=== PATIENT | male | born 1995 | race African-American/Black ===

== ENCOUNTER 2024-06-19 15:22 | Inpatient (IN) | payer OTHER ==
[~2024-06-19] VITALS: Ht 182.9 cm; Wt 100.0 kg
[2024-06-19] MEDS ORDERED: SULF-261 PO (15:57)
[2024-06-19] MEDS ORDERED: METF-1211 PO (15:57)
[2024-06-19] MEDS ORDERED: OXCA300T70 PO (15:57)
[2024-06-19] MEDS ORDERED: SERT-162 PO (15:57)
[2024-06-19] MEDS ORDERED: LEVAHFA IH (15:57)
[2024-06-19] MEDS ORDERED: HYDR-4808 PO ×2 (15:57)
[2024-06-19] MEDS ORDERED: PRAZ2 PO (15:57)
[2024-06-19 16:17] LABS: BASOPHILS % (AUTO) 0.7 % (0.0-2.0); EOSINOPHILS % (AUTO) 6.1 % (1.0-6.0); HEMATOCRIT 42.1 % (41-53); HEMOGLOBIN 13.2 g/dL (13.5-17.5); LYMPHOCYTES # (AUTO) 2.1 K/uL (1.0-4.8); LYMPHOCYTES % (AUTO) 45.6 % (22.0-44.0); MEAN CORPUSCULAR HGB CONC 31.4 G/dL (31.0-37.0); MEAN CORPUSCULAR VOLUME 89 fL (80-100); MONOCYTES # (AUTO) 0.4 K/uL (0.1-1.0); MONOCYTES % (AUTO) 9.4 % (2.0-9.0); NEUTROPHILS # (AUTO) 1.8 K/uL (1.8-7.7); NEUTROPHILS % (AUTO) 38.2 % (40.0-70.0); PLATELET COUNT (AUTO) 289 K/uL (150-450); RED BLOOD CELL COUNT(AUTO) 4.73 MIL/uL (4.50-5.90); RED CELL DISTRIBUTION WIDTH 14.5 % (11.5-14.5); WHITE BLOOD COUNT (AUTO) 4.6 K/uL (4.5-11.0)
[2024-06-19 16:27] LABS: ANION GAP 7 mmol/L (8-16); CALCIUM, TOTAL 8.8 mg/dL (8.8-10.5); CARBON DIOXIDE 28 mmol/L (22-29); CHLORIDE 104 mmol/L (98-107); CREATININE 1.11 mg/dL (0.60-1.30); GLOMERULAR FILTR. RATE CALC > 60 mL/min (>60); GLUCOSE,RANDOM 77 mg/dL (70-110); SODIUM SERUM 139 mmol/L (136-145); UREA NITROGEN, BLOOD 11 mg/dL (7-18)
[2024-06-19 16:34] LABS: ALANINE AMINOTRANSFERASE 66 U/L (12-78); ALBUMIN 3.9 g/dL (3.4-5.0); ALKALINE PHOSPHATASE 62 U/L (46-116); ASPARTATE AMINOTRANSFERASE 46 U/L (15-37); BILIRUBIN,TOTAL 0.9 mg/dL (0.1-1.0); LIPASE 20 U/L (16-77)
[2024-06-19] MEDS ORDERED: SODIUM CHLORIDE 0.9% 100 ML ONE (16:53)
[2024-06-19] MEDS ORDERED: IOHEXOL 350 MG/ML 100 ML VIAL ONE (16:53)
[2024-06-19] MEDS ORDERED: 0.9% SODIUM CHLORIDE 10 ML SYRINGE IVP ONE (16:53)
[2024-06-19 17:14] LABS: APPEARANCE,URINE CLEAR (CLEAR); BILIRUBIN,URINE NEGATIVE (NEGATIVE); COLOR,URINE LIGHT YELLOW (YELLOW); GLUCOSE, URINE (UA) NEGATIVE (NEGATIVE); KETONES,URINE NEGATIVE (NEGATIVE); LEUKOCYTE ESTERASE ,URINE NEGATIVE (NEGATIVE); NITRATE,URINE NEGATIVE (NEGATIVE); OCCULT BLOOD,URINE NEGATIVE (NEGATIVE); PROTEIN,URINE NEGATIVE (NEGATIVE); SPECIFIC GRAVITIY, URINE 1.018 (1.003-1.030); UROBILINOGEN,URINE <=1.0 mg/dL (<=1.0)
[2024-06-19] MEDS: ONDANSETRON HCL 4 MG/2 ML VIAL IM ONE (19:45)
[2024-06-19] MEDS ORDERED: ONDANSETRON HCL 4 MG/2 ML VIAL IVP PRN (21:00)
[2024-06-19] MEDS ORDERED: MORPHINE SULFATE 2 MG/ML SYRINGE IVP PRN (21:00)
[2024-06-19] MEDS ORDERED: BISACODYL 10 MG RECTAL RECTAL SUPPOSITORY PR PRN (21:00)
[2024-06-19] MEDS ORDERED: ACETAMINOPHEN 325 MG TABLET PO PRN (21:00)
[2024-06-19] MEDS ORDERED: DEXTROSE 50%-WATER 25 GM/50 ML SYRINGE IVP PRN (21:00)
[2024-06-19] MEDS ORDERED: MAGNESIUM HYDROXIDE SUSPENSION 30 ML UDCUP PO PRN (21:00)
[2024-06-19] MEDS ORDERED: INSULIN LISPRO 100 UNITS/ML SQ PRN (21:00)
[2024-06-19] MEDS: PANTOPRAZOLE SODIUM 40 MG/VIAL IVP ONE (21:48)
[2024-06-19] MEDS: SODIUM CHLORIDE 0.9% 1,000 ML IV ONE (21:48)
[2024-06-19] MEDS: DOCUSATE SODIUM 100 MG CAPSULE PO SCH (21:49)
[2024-06-19] MEDS: PANTOPRAZOLE SODIUM 80 MG in SODIUM CHLORIDE 0.9% 100 ML IV SCH (21:49)
[2024-06-19 22:24] VITALS: BP 119/61; PULSE 48; RESP 19; TEMP 98.7
[2024-06-20 00:11] LABS: GLUCOMETER DEV NAME(LOC) 6N.2B; GLUCOSE,POINT OF CARE 68 MG/DL (70-110)
[2024-06-20 00:11] LABS: GLUCOMETER DEV NAME(LOC) 6N.2B; GLUCOSE,POINT OF CARE 83 MG/DL (70-110)
[2024-06-20] MEDS: ZOLPIDEM TARTRATE 5 MG TABLET PO PRN (01:25)
[2024-06-20] MEDS: HYDROCODONE/ACETAMINOPHEN 5-325 MG TABLET PO PRN (01:25)
[2024-06-20 04:52] VITALS: BP 115/68; PULSE 40; RESP 18; TEMP 97.5
[2024-06-20] MEDS: DEXTROSE 5%-0.45% SODIUM CHL 1,000 ML IV SCH (06:43)
[2024-06-20 07:45] LABS: BASOPHILS % (AUTO) 0.8 % (0.0-2.0); EOSINOPHILS % (AUTO) 7.7 % (1.0-6.0); HEMATOCRIT 42.6 % (41-53); HEMOGLOBIN 13.5 g/dL (13.5-17.5); LYMPHOCYTES # (AUTO) 2.4 K/uL (1.0-4.8); LYMPHOCYTES % (AUTO) 46.2 % (22.0-44.0); MEAN CORPUSCULAR HEMOGLOBIN 28.3 pg (26.0-34.0); MEAN CORPUSCULAR HGB CONC 31.7 G/dL (31.0-37.0); MEAN CORPUSCULAR VOLUME 89 fL (80-100); MONOCYTES # (AUTO) 0.5 K/uL (0.1-1.0); MONOCYTES % (AUTO) 8.6 % (2.0-9.0); NEUTROPHILS # (AUTO) 1.9 K/uL (1.8-7.7); NEUTROPHILS % (AUTO) 36.7 % (40.0-70.0); PLATELET COUNT (AUTO) 273 K/uL (150-450); RED BLOOD CELL COUNT(AUTO) 4.77 MIL/uL (4.50-5.90); RED CELL DISTRIBUTION WIDTH 14.7 % (11.5-14.5); WHITE BLOOD COUNT (AUTO) 5.2 K/uL (4.5-11.0)
[2024-06-20 07:47] LABS: ANION GAP 6 mmol/L (8-16); CALCIUM, TOTAL 8.7 mg/dL (8.8-10.5); CARBON DIOXIDE 28 mmol/L (22-29); CHLORIDE 105 mmol/L (98-107); CREATININE 1.13 mg/dL (0.60-1.30); GLOMERULAR FILTR. RATE CALC > 60 mL/min (>60); GLUCOSE,RANDOM 99 mg/dL (70-110); POTASSIUM 4.1 mmol/L (3.5-5.1); SODIUM SERUM 139 mmol/L (136-145); UREA NITROGEN, BLOOD 8 mg/dL (7-18)
[2024-06-20 08:10] VITALS: BP 132/60; PULSE 49; RESP 18; TEMP 97.9
[2024-06-20] MEDS: PANTOPRAZOLE SODIUM 40 MG DR TABLET PO SCH (08:19)
[2024-06-20 11:41] LABS: GLUCOMETER DEV NAME(LOC) 6S.2; GLUCOSE,POINT OF CARE 71 MG/DL (70-110)
[2024-06-20 11:41] LABS: GLUCOMETER DEV NAME(LOC) 6S.2; GLUCOSE,POINT OF CARE 113 MG/DL (70-110)
[2024-06-20] MEDS ORDERED: LEVALBUTEROL TARTRATE HFA 45 MCG/PUFF 15 GM INHALER IH PRN (13:15)
[2024-06-20 16:40] LABS: GLUCOMETER DEV NAME(LOC) 6N.2B; GLUCOSE,POINT OF CARE 80 MG/DL (70-110)
[2024-06-20] MEDS: MetFORMIN HCL 500 MG TABLET PO SCH (18:08)
[2024-06-20 20:10] LABS: GLUCOMETER DEV NAME(LOC) 6S.2; GLUCOSE,POINT OF CARE 72 MG/DL (70-110)
[2024-06-20 20:18] VITALS: BP 122/53; PULSE 48; RESP 20; TEMP 98.6
[2024-06-20] MEDS: SERTRALINE HCL 100 MG TABLET PO SCH (20:42)
[2024-06-20] MEDS: OXcarbazepine 300 MG TABLET PO SCH (20:42)
[2024-06-20] MEDS: HydrOXYzine PAMOATE 50 MG CAPSULE PO SCH (20:42)
[2024-06-20] MEDS: PRAZOSIN HCL 2 MG CAPSULE PO SCH (20:55)
[2024-06-21 05:45] LABS: GLUCOMETER DEV NAME(LOC) 6N.2B; GLUCOSE,POINT OF CARE 96 MG/DL (70-110)
[2024-06-21 05:59] VITALS: BP 126/77; PULSE 45; RESP 19; TEMP 97.5
[2024-06-21 06:30] LABS: ANION GAP 3 mmol/L (8-16); BASOPHILS % (AUTO) 0.6 % (0.0-2.0); CALCIUM, TOTAL 9.1 mg/dL (8.8-10.5); CARBON DIOXIDE 34 mmol/L (22-29); CHLORIDE 103 mmol/L (98-107); CREATININE 1.08 mg/dL (0.60-1.30); EOSINOPHILS % (AUTO) 6.3 % (1.0-6.0); GLOMERULAR FILTR. RATE CALC > 60 mL/min (>60); GLUCOSE,RANDOM 83 mg/dL (70-110); HEMATOCRIT 48.1 % (41-53); HEMOGLOBIN 15.2 g/dL (13.5-17.5); LYMPHOCYTES # (AUTO) 3.1 K/uL (1.0-4.8); LYMPHOCYTES % (AUTO) 44.1 % (22.0-44.0); MEAN CORPUSCULAR HEMOGLOBIN 28.1 pg (26.0-34.0); MEAN CORPUSCULAR HGB CONC 31.6 G/dL (31.0-37.0); MEAN CORPUSCULAR VOLUME 89 fL (80-100); MONOCYTES # (AUTO) 0.5 K/uL (0.1-1.0); MONOCYTES % (AUTO) 7.8 % (2.0-9.0); NEUTROPHILS # (AUTO) 2.9 K/uL (1.8-7.7); NEUTROPHILS % (AUTO) 41.2 % (40.0-70.0); PLATELET COUNT (AUTO) 316 K/uL (150-450); POTASSIUM 4.2 mmol/L (3.5-5.1); RED BLOOD CELL COUNT(AUTO) 5.41 MIL/uL (4.50-5.90); RED CELL DISTRIBUTION WIDTH 14.8 % (11.5-14.5); SODIUM SERUM 140 mmol/L (136-145); UREA NITROGEN, BLOOD 9 mg/dL (7-18); WHITE BLOOD COUNT (AUTO) 6.9 K/uL (4.5-11.0)
[2024-06-21 06:55] LABS: GLUCOMETER DEV NAME(LOC) 6S.2; GLUCOSE,POINT OF CARE 80 MG/DL (70-110)
[2024-06-21 08:16] VITALS: BP 106/62; PULSE 42; RESP 19; TEMP 97.7
[2024-06-21 12:31] LABS: GLUCOMETER DEV NAME(LOC) 6S.2; GLUCOSE,POINT OF CARE 80 MG/DL (70-110)
[2024-06-21 15:50] VITALS: BP 105/57; PULSE 51; RESP 18; TEMP 98.2
[2024-06-21] MEDS ORDERED: HYDROCORTISONE 2.5% 30 GM CREAM TP SCH ×2 (16:15→16:45)
[2024-06-21 19:06] LABS: GLUCOMETER DEV NAME(LOC) 6S.2; GLUCOSE,POINT OF CARE 101 MG/DL (70-110)
[2024-06-23 01:06] LABS: HEPATITIS C AB (EIA) Non Reactive (Non Reactive)
== END 2024-06-21 20:02 | DRG 379 ==
LOC: EMS 15:22 → EDH 20:57 → 6S 22:09
PROVIDERS: ADMIT Internal Medicine; ATTEND Internal Medicine
DX: K92.0 Hematemesis (principal); J45.909 Unspecified asthma, uncomplicated; E11.9 Type 2 diabetes mellitus without complications; F20.9 Schizophrenia, unspecified; R51.9 Headache, unspecified; R10.9 Unspecified abdominal pain; F99 Mental disorder, not otherwise specified; Z76.5 Malingerer [conscious simulation]; Z79.84 Long term (current) use of oral hypoglycemic drugs; Z87.828 Personal history of other (healed) physical injury and trauma; Z79.899 Other long term (current) drug therapy
CPT/HCPCS: 70450; 74177; 80048; 80076; 81003; 82271; 82962; 83690; 85025; 86803; 86850; 86900; 86901; 87340; 99285; C9113; J7030; J7050